=== PATIENT | female | born 1970 | race Caucasian/White ===

== ENCOUNTER 2018-04-20 13:45 | Observation (INO) | payer BC ==
[~2018-04-20] VITALS: Ht 162.6 cm; Wt 103.0 kg
== END 2018-04-20 16:00 | disposition home or self-care (01) ==
LOC: SPU 13:45
PROVIDERS: ADMIT Obstetrics & Gynecology; ATTEND Obstetrics & Gynecology
DX: O41.93X0 Disorder of amniotic fluid and membranes, unspecified, third trimester, not applicable or unspecified (principal); Z3A.31 31 weeks gestation of pregnancy
CPT/HCPCS: 59025; 76819; 81002; G0378

== ENCOUNTER 2018-05-09 20:31 | Observation (INO) | payer BC ==
[~2018-05-09] VITALS: Ht 162.6 cm; Wt 102.1 kg
[2018-05-09 21:34] VITALS: BP_SYST 132
[2018-05-09 21:36] LABS: BASOPHILS % (AUTO) 0.3 % (0.0-2.0); EOSINOPHILS # (AUTO) 0.1 K/uL (0.0-0.4); HEMATOCRIT 36.3 % (36-48); HEMOGLOBIN 12.3 g/dL (12.0-16.0); LYMPHOCYTES # (AUTO) 1.5 K/uL (1.0-5.5); LYMPHOCYTES % (AUTO) 15.2 % (20.5-51.5); MEAN CORPUSCULAR HEMOGLOBIN 33 pg (27-31); MEAN CORPUSCULAR HGB CONC 34 % (32-36); MEAN CORPUSCULAR VOLUME 98 fL (79.0-98.0); MONOCYTES # (AUTO) 0.4 K/uL (0.0-1.0); MONOCYTES % (AUTO) 4.5 % (1.7-9.3); NEUTROPHILS # (AUTO) 7.6 K/uL (1.8-7.7); PLATELET COUNT (AUTO) 233 K/uL (130-430); RED BLOOD CELL COUNT(AUTO) 3.72 MIL/uL (4.2-6.2); RED CELL DISTRIBUTION WIDTH 13.3 % (9.0-15.0); WHITE BLOOD COUNT (AUTO) 9.6 K/uL (4.8-10.8)
[2018-05-09 21:54] LABS: ALBUMIN 2.4 g/dL (3.4-4.8); CALCIUM 8.7 mg/dL (8.4-11.0); CREATININE 0.64 mg/dL (0.55-1.30); POTASSIUM 4.4 mmol/L (3.5-5.1); TOTAL BILIRUBIN 0.2 mg/dL (0.0-1.0); URIC ACID 3.4 mg/dL (2.4-7.0)
== END 2018-05-09 22:39 | disposition home or self-care (01) ==
LOC: SPU 20:31
PROVIDERS: ADMIT Specialist; ATTEND Specialist
DX: O99.89 Other specified diseases and conditions complicating pregnancy, childbirth and the puerperium (principal); M25.475 Effusion, left foot; Z3A.00 Weeks of gestation of pregnancy not specified
CPT/HCPCS: 36415; 80053; 81002; 84550; 85025; G0378

== ENCOUNTER 2018-05-13 13:13 | Observation (INO) | payer BC ==
[~2018-05-13] VITALS: Ht 162.6 cm; Wt 103.9 kg
== END 2018-05-13 14:30 | disposition home or self-care (01) ==
LOC: SPU 13:13
PROVIDERS: ADMIT Specialist; ATTEND Specialist
DX: O09.523 Supervision of elderly multigravida, third trimester (principal); O99.283 Endocrine, nutritional and metabolic diseases complicating pregnancy, third trimester; E03.9 Hypothyroidism, unspecified; Z3A.34 34 weeks gestation of pregnancy
CPT/HCPCS: 59025; 81002; G0378

== ENCOUNTER 2018-06-07 12:00 | Inpatient (IN) | payer BC ==
[2018-06-06 12:12] LABS: BILIRUBIN,URINE NEGATIVE (NEGATIVE); BLOOD, URINE NEGATIVE (NEGATIVE); CLARITY/URINE CLEAR (CLEAR); COLOR,URINE YELLOW (YELLOW); GLUCOSE,URINE NEGATIVE (NEGATIVE); KETONES,URINE NEGATIVE (NEGATIVE); LEUKOCYTE ESTERASE ,URINE NEGATIVE (NEGATIVE); NITRITE, URINE NEGATIVE (NEGATIVE); PH,URINE 6.5 (5.0-8.0); PROTEIN URINE 1+ (NEGATIVE); UROBILINOGEN,URINE 0.2 (0.2-1.0)
[2018-06-06 12:31] LABS: BACTERIA,URINE RARE /HPF (None Seen); RBC,URINE 0-3 /HPF (0-3); WBC,URINE 0-3 /HPF (0-3)
[2018-06-06 12:34] LABS: BASOPHILS % (AUTO) 0.5 % (0.0-2.0); EOSINOPHILS # (AUTO) 0.1 K/uL (0.0-0.4); EOSINOPHILS % (AUTO) 1.1 % (0.0-4.0); HEMATOCRIT 38.1 % (36-48); HEMOGLOBIN 12.5 g/dL (12.0-16.0); LYMPHOCYTES # (AUTO) 1.1 K/uL (1.0-5.5); LYMPHOCYTES % (AUTO) 16.8 % (20.5-51.5); MEAN CORPUSCULAR HEMOGLOBIN 32 pg (27-31); MEAN CORPUSCULAR HGB CONC 33 % (32-36); MEAN CORPUSCULAR VOLUME 99 fL (79.0-98.0); MONOCYTES # (AUTO) 0.3 K/uL (0.0-1.0); NEUTROPHILS # (AUTO) 5.2 K/uL (1.8-7.7); NEUTROPHILS % (AUTO) 76.6 % (40.0-70.0); PLATELET COUNT (AUTO) 179 K/uL (130-430); RED BLOOD CELL COUNT(AUTO) 3.86 MIL/uL (4.2-6.2); WHITE BLOOD COUNT (AUTO) 6.7 K/uL (4.8-10.8)
[~2018-06-07] VITALS: Ht 162.6 cm; Wt 111.6 kg
[2018-06-07] MEDS ORDERED: LIDOCAINE PF 1%, 20 MG/2 ML AMP ONE (14:34)
[2018-06-07] MEDS ORDERED: LR 1,000 ML IV ONE (14:46)
[2018-06-07] MEDS ORDERED: CEFAZOLIN 2 GM IVPB PREMIX 50 ML IV ONE (15:00)
[2018-06-07] MEDS ORDERED: OXYTOCIN/0.9 % SODIUM CHLORIDE 1,000 ML IV ONE (15:57)
[2018-06-07] MEDS ORDERED: LR 1,000 ML IV SCH ×2 (15:57→15:58)
[2018-06-07] MEDS ORDERED: NALOXONE HCL 1 MG in NACL 0.9% 1,000 ML IV PRN ×4 (15:58)
[2018-06-07] MEDS ORDERED: MEPERIDINE HCL/PF 25 MG/ML DISP.SYRIN IVP PRN ×2 (16:00)
[2018-06-07] MEDS ORDERED: HYDROmorphone 1 MG INJ. 1 MG/ML AMPUL IVP PRN (16:00)
[2018-06-07] MEDS ORDERED: NALOXONE HCL 0.4 MG/ML AMP (NARCAN) IVP PRN ×3 (16:00)
[2018-06-07] MEDS ORDERED: DIPHENHYDRAMINE HCL 50 MG CAPSULE PO PRN (16:00)
[2018-06-07] MEDS ORDERED: DIPHENHYDRAMINE INJ 50 MG/ML VIAL IVP PRN (16:00)
[2018-06-07] MEDS ORDERED: KETOROLAC TROMETHAMINE 60 MG/2 ML VIAL IM PRN (16:00)
[2018-06-07] MEDS ORDERED: HYDROmorphone 2 MG/ML VIAL IVP PRN ×2 (16:00)
[2018-06-07] MEDS: ONDANSETRON HCL 4 MG/2 ML VIAL IVP PRN (16:45)
[2018-06-07] MEDS ORDERED: ONDANSETRON HCL 4 MG/2 ML VIAL ONE (16:50)
[2018-06-07 17:52] VITALS: BP_SYST 115
[2018-06-08] MEDS: ONDANSETRON HCL 4 MG/2 ML VIAL IVP PRN ×2 (02:24→08:14)
[2018-06-08] MEDS: CEFAZOLIN 1 GM IVPB PREMIX 50 ML IV SCH ×2 (07:58)
[2018-06-08] MEDS: KETOROLAC TROMETHAMINE 30 MG VIAL IVP SCH ×2 (08:15→12:26)
[2018-06-08] MEDS ORDERED: ePHEDrine sulfate 50 MG/ML VIAL IVP ONE (14:15)
[2018-06-08] MEDS ORDERED: DIPHENHYDRAMINE INJ 50 MG/ML VIAL IVP ONE (14:15)
[2018-06-08] MEDS ORDERED: MORPHINE SULFATE 10MG/10ML PF AMP EP ONE (14:15)
[2018-06-08] MEDS ORDERED: BUPIVACAINE /DEX PF 0.75% SPINAL 2 ML AMP INJ ONE (14:15)
[2018-06-08] MEDS ORDERED: ONDANSETRON HCL 4 MG/2 ML VIAL IVP ONE (14:15)
[2018-06-08] MEDS ORDERED: LR 1,000 ML IV.SOLN IV ONE (14:15)
[2018-06-08] MEDS ORDERED: WATER FOR IRRIGATION,STERILE 1,000 ML IRRIG.SOLN IR ONE (14:15)
[2018-06-08] MEDS ORDERED: OXYTOCIN 10 UNIT/ML VIAL IV ONE (14:15)
[2018-06-08] MEDS: SIMETHICONE 80 MG TAB.CHEW PO SCH ×2 (18:00→22:50)
[2018-06-08] MEDS: IBUPROFEN 600 MG TABLET PO SCH ×2 (18:01→23:58)
[2018-06-08] MEDS ORDERED: DOCUSATE SODIUM 100 MG CAPSULE PO ONE (18:25)
[2018-06-08] MEDS: DOCUSATE SODIUM 100 MG CAPSULE PO PRN (18:33)
[2018-06-08] MEDS: OXYCODONE/ACETAMINOPHEN 5-325 TABLET PO PRN ×2 (18:33→22:51)
[2018-06-09] MEDS: OXYCODONE/ACETAMINOPHEN 5-325 TABLET PO PRN ×5 (02:34→23:42)
[2018-06-09] MEDS: IBUPROFEN 600 MG TABLET PO SCH ×4 (05:44→23:41)
[2018-06-09] MEDS: SIMETHICONE 80 MG TAB.CHEW PO SCH ×3 (12:35→23:40)
[2018-06-09] MEDS: DOCUSATE SODIUM 100 MG CAPSULE PO PRN (12:35)
[2018-06-10] MEDS: IBUPROFEN 600 MG TABLET PO SCH ×2 (06:14→12:04)
[2018-06-10] MEDS: OXYCODONE/ACETAMINOPHEN 5-325 TABLET PO PRN ×2 (06:15→12:25)
[2018-06-10] MEDS: DOCUSATE SODIUM 100 MG CAPSULE PO PRN (12:04)
[2018-06-10] MEDS: SIMETHICONE 80 MG TAB.CHEW PO SCH (12:05)
== END 2018-06-10 12:30 | disposition home or self-care (01) | DRG 788 ==
LOC: SPU 14:30
PROVIDERS: ADMIT Specialist; ATTEND Specialist
PROC: 10D00Z1 Extraction of Products of Conception, Low, Open Approach (ICD-10-PCS; principal; 2018-06-10)
DX: O76 Abnormality in fetal heart rate and rhythm complicating labor and delivery (principal); O34.13 Maternal care for benign tumor of corpus uteri, third trimester; D25.9 Leiomyoma of uterus, unspecified; O69.81X0 Labor and delivery complicated by cord around neck, without compression, not applicable or unspecified; Z37.0 Single live birth; Z3A.37 37 weeks gestation of pregnancy
CPT/HCPCS: 36415; 81000-TC; 85025; 86592; 86886; 86900; 86901; 94760; J0690; J1200; J1885; J2001; J2274; J2310; J2405; J2590; J3490; J7030; J7120

== ENCOUNTER 2019-11-16 08:40 | Observation (INO) | payer BC ==
[~2019-11-16] VITALS: Ht 162.6 cm; Wt 104.3 kg
== END 2019-11-16 10:55 | disposition home or self-care (01) ==
LOC: SPU 08:40
PROVIDERS: ADMIT Specialist; ATTEND Specialist
DX: Z03.818 Encounter for observation for suspected exposure to other biological agents ruled out (principal); O36.8130 Decreased fetal movements, third trimester, not applicable or unspecified; Z3A.34 34 weeks gestation of pregnancy
CPT/HCPCS: 59025; 76815; G0378; U0003

== ENCOUNTER 2019-11-27 11:55 | Inpatient (IN) | payer BC ==
[~2019-11-27] VITALS: Ht 162.6 cm; Wt 104.3 kg
[2019-11-27] MEDS ORDERED: LR 1,000 ML IV ONE (12:21)
[2019-11-27] MEDS ORDERED: CEFAZOLIN 2 GM IVPB PREMIX 50 ML IV ONE (12:30)
[2019-11-27 12:57] LABS: BILIRUBIN,URINE NEGATIVE (NEGATIVE); BLOOD, URINE NEGATIVE (NEGATIVE); CLARITY/URINE TURBID (CLEAR); COLOR,URINE YELLOW (YELLOW); GLUCOSE,URINE NEGATIVE (NEGATIVE); KETONES,URINE TRACE (NEGATIVE); LEUKOCYTE ESTERASE ,URINE NEGATIVE (NEGATIVE); NITRITE, URINE NEGATIVE (NEGATIVE); PROTEIN URINE TRACE (NEGATIVE); UROBILINOGEN,URINE 0.2 (0.2-1.0)
[2019-11-27 13:05] LABS: BASOPHILS % (AUTO) 0.4 % (0.0-2.0); EOSINOPHILS % (AUTO) 0.6 % (0.0-4.0); HEMATOCRIT 38.3 % (36-48); HEMOGLOBIN 12.6 g/dL (12.0-16.0); LYMPHOCYTES # (AUTO) 1.6 K/uL (1.0-5.5); LYMPHOCYTES % (AUTO) 22.3 % (20.5-51.5); MEAN CORPUSCULAR HEMOGLOBIN 32 pg (27-31); MEAN CORPUSCULAR HGB CONC 33 % (32-36); MEAN CORPUSCULAR VOLUME 98 fL (79.0-98.0); MONOCYTES # (AUTO) 0.4 K/uL (0.0-1.0); NEUTROPHILS % (AUTO) 71.7 % (40.0-70.0); PLATELET COUNT (AUTO) 204 K/uL (130-430); RED BLOOD CELL COUNT(AUTO) 3.92 MIL/uL (4.2-6.2); RED CELL DISTRIBUTION WIDTH 15.4 % (9.0-15.0)
[2019-11-27 14:20] VITALS: BP_SYST 111
[2019-11-27] MEDS ORDERED: fentaNYL CITRATE/PF 100 MCG/2 ML AMP IVP PRN ×2 (16:00)
[2019-11-27] MEDS ORDERED: DIPHENHYDRAMINE INJ 50 MG/ML VIAL IVP PRN (16:00)
[2019-11-27] MEDS ORDERED: KETOROLAC TROMETHAMINE 60 MG/2 ML VIAL IM PRN (16:00)
[2019-11-27] MEDS ORDERED: NALBUPHINE HCL 10 MG/ML AMP IVP PRN (16:00)
[2019-11-27] MEDS ORDERED: NALOXONE HCL 0.4 MG/ML AMP (NARCAN) IVP PRN ×3 (16:00→22:45)
[2019-11-27] MEDS ORDERED: MORPHINE SULFATE 10MG/10ML PF AMP SP SCH (16:00)
[2019-11-27] MEDS ORDERED: AMPICILLIN SODIUM 2 GM in NS 100 ML IV ONE (20:00)
[2019-11-27] MEDS ORDERED: AMPICILLIN SODIUM 2 GM VIAL ONE (20:13)
[2019-11-27] MEDS ORDERED: MORPHINE SULFATE 10MG/10ML PF AMP EP ONE (21:31)
[2019-11-27] MEDS ORDERED: PHENYLEPHRINE HCL 10 MG/ML VIAL (NEOSYNEPHRINE) IV ONE (21:31)
[2019-11-27] MEDS ORDERED: ONDANSETRON HCL 4 MG/2 ML VIAL IVP ONE (21:31)
[2019-11-27] MEDS ORDERED: BUPIVACAINE /DEX PF 0.75% SPINAL 2 ML AMP INJ ONE (21:31)
[2019-11-27] MEDS ORDERED: NS IRRIG SOLN 1000 ML IR ONE (21:31)
[2019-11-27] MEDS ORDERED: LR 1,000 ML IV SCH (22:40)
[2019-11-27] MEDS ORDERED: OXYTOCIN/0.9 % SODIUM CHLORIDE 1,000 ML IV SCH (22:40)
[2019-11-27 22:42] VITALS: BP_SYST 124
[2019-11-27] MEDS ORDERED: DIPH-TET-PERTUS Vaccine 0.5 ML VIAL (ADACEL) I.M. PRN (22:45)
[2019-11-27] MEDS ORDERED: SENNOSIDES/DOCUSATE SODIUM 1 TAB TABLET(SENOKOT-S) PO PRN (22:45)
[2019-11-27] MEDS ORDERED: DOCUSATE SODIUM 100 MG CAPSULE PO PRN (22:45)
[2019-11-27] MEDS ORDERED: HYDROcodone/ACETAMIN 5-325 MG TAB (NORCO/ VICODIN) PO PRN (22:45)
[2019-11-27] MEDS ORDERED: RHO(D) IMMUNE GLOBULIN/MALTOSE 1500 UNITS/1.3 ML (WINHRO) IM PRN (22:45)
[2019-11-27] MEDS ORDERED: BISACODYL 10 MG/SUPPOSITORY RC PRN (22:45)
[2019-11-27] MEDS ORDERED: TEMAZEPAM 15 MG CAPSULE PO PRN (22:45)
[2019-11-27] MEDS ORDERED: MEASLES,MUMPS&RUBELLA VACC/PF 12500 UNIT/0.5 ML VIAL SUBQ PRN (22:45)
[2019-11-27] MEDS ORDERED: ANUSOL 1 EA SUPP.RECT (PREPARATION H) RC PRN (22:45)
[2019-11-27] MEDS ORDERED: LANOLIN 7 GM OINT. TP PRN (22:45)
[2019-11-27] MEDS ORDERED: OXYTOCIN/0.9 % SODIUM CHLORIDE 1,000 ML IV ONE (23:16)
[2019-11-27] MEDS ORDERED: DIPHENHYDRAMINE INJ 50 MG/ML VIAL ONE (23:26)
[2019-11-27] MEDS: ONDANSETRON HCL 4 MG/2 ML VIAL IVP PRN (23:40)
[2019-11-28] MEDS ORDERED: ONDANSETRON HCL 4 MG/2 ML VIAL ONE
[2019-11-28] MEDS ORDERED: CEFAZOLIN 1 GM IVPB PREMIX 50 ML IV SCH
[2019-11-28] MEDS: CEFAZOLIN 1 GM IVPB PREMIX 50 ML IV SCH ×3 (02:47→15:07)
[2019-11-28 07:15] LABS: BASOPHILS % (AUTO) 0.2 % (0.0-2.0); EOSINOPHILS % (AUTO) 0.1 % (0.0-4.0); HEMATOCRIT 33.3 % (36-48); HEMOGLOBIN 10.9 g/dL (12.0-16.0); LYMPHOCYTES # (AUTO) 1.9 K/uL (1.0-5.5); LYMPHOCYTES % (AUTO) 15.5 % (20.5-51.5); MEAN CORPUSCULAR HEMOGLOBIN 33 pg (27-31); MEAN CORPUSCULAR HGB CONC 33 % (32-36); MEAN CORPUSCULAR VOLUME 100 fL (79.0-98.0); MONOCYTES # (AUTO) 0.6 K/uL (0.0-1.0); MONOCYTES % (AUTO) 5.2 % (1.7-9.3); NEUTROPHILS # (AUTO) 9.6 K/uL (1.8-7.7); PLATELET COUNT (AUTO) 171 K/uL (130-430); RED BLOOD CELL COUNT(AUTO) 3.34 MIL/uL (4.2-6.2); RED CELL DISTRIBUTION WIDTH 15.8 % (9.0-15.0); WHITE BLOOD COUNT (AUTO) 12.1 K/uL (4.8-10.8)
[2019-11-28] MEDS: ONDANSETRON HCL 4 MG/2 ML VIAL IVP PRN (08:30)
[2019-11-28] MEDS: KETOROLAC TROMETHAMINE 30 MG VIAL IVP SCH ×3 (09:03→22:14)
[2019-11-28] MEDS: OXYCODONE/ACETAMINOPHEN 5-325 TABLET PO PRN (20:42)
[2019-11-28] MEDS: SIMETHICONE 80 MG TAB.CHEW PO PRN (20:42)
[2019-11-29] MEDS: SIMETHICONE 80 MG TAB.CHEW PO PRN (00:49)
[2019-11-29] MEDS: OXYCODONE/ACETAMINOPHEN 5-325 TABLET PO PRN ×2 (00:49→04:04)
[2019-11-29] MEDS ORDERED: IBUPROFEN 600 MG TABLET PO SCH ×2 (06:00)
[2019-11-29] MEDS: KETOROLAC TROMETHAMINE 30 MG VIAL IVP SCH (06:22)
[2019-11-29] MEDS: OXYCODONE/ACETAMINOPHEN *10*mg/325 mg TABLET PO PRN ×3 (07:55→15:59)
[2019-11-30 19:27] LABS: FTA-Ab (T PALLIDUM) Non Reactive (Non Reactive)
== END 2019-11-29 16:45 | disposition home or self-care (01) | DRG 788 ==
LOC: SPU 11:55
PROVIDERS: ADMIT Specialist; ATTEND Specialist
PROC: 10D00Z1 Extraction of Products of Conception, Low, Open Approach (ICD-10-PCS; principal; 2019-11-27 17:00)
DX: O24.429 Gestational diabetes mellitus in childbirth, unspecified control (principal); R03.0 Elevated blood-pressure reading, without diagnosis of hypertension; O75.89 Other specified complications of labor and delivery; Z3A.36 36 weeks gestation of pregnancy; Z37.0 Single live birth
CPT/HCPCS: 36415; 81003; 82962; 85025; 86592; 86780; 86886; 86900; 86901; 94760; J0290; J0690; J1200; J1885; J2274; J2370; J2405; J2590; J3490; J7120

== ENCOUNTER 2023-12-16 06:07 | Day surgery (SDC) | payer BC ==
[2023-12-13 10:44] LABS: EOSINOPHILS # (AUTO) 0.1 K/uL (0.0-0.4); EOSINOPHILS % (AUTO) 1.6 % (0.0-4.0); HEMATOCRIT 38.1 % (36-48); HEMOGLOBIN 12.7 g/dL (12.0-16.0); LYMPHOCYTES # (AUTO) 1.1 K/uL (1.0-5.5); LYMPHOCYTES % (AUTO) 24.3 % (20.5-51.5); MEAN CORPUSCULAR HEMOGLOBIN 31 pg (27-31); MEAN CORPUSCULAR HGB CONC 33 % (32-36); MEAN CORPUSCULAR VOLUME 94 fL (79.0-98.0); MONOCYTES # (AUTO) 0.3 K/uL (0.0-1.0); MONOCYTES % (AUTO) 7.2 % (1.7-9.3); NEUTROPHILS % (AUTO) 65.9 % (40.0-70.0); PLATELET COUNT (AUTO) 310 K/uL (130-430); RED BLOOD CELL COUNT(AUTO) 4.05 MIL/uL (4.2-6.2); RED CELL DISTRIBUTION WIDTH 15.2 % (9.0-15.0); WHITE BLOOD COUNT (AUTO) 4.6 K/uL (4.8-10.8)
[2023-12-13 10:48] LABS: BILIRUBIN,URINE NEGATIVE (NEGATIVE); BLOOD, URINE 3+ (NEGATIVE); CLARITY/URINE CLOUDY (CLEAR); COLOR,URINE RED (YELLOW); GLUCOSE,URINE NEGATIVE (NEGATIVE); KETONES,URINE 1+ (NEGATIVE); LEUKOCYTE ESTERASE ,URINE 1+ (NEGATIVE); NITRITE, URINE POSITIVE (NEGATIVE); PH,URINE 6.5 (5.0-8.0); PROTEIN URINE 3+ (NEGATIVE)
[2023-12-13 11:06] LABS: RBC,URINE >100 /HPF (0-3)
[2023-12-13 11:07] LABS: BACTERIA,URINE RARE /HPF (None Seen)
[~2023-12-16] VITALS: Ht 162.6 cm; Wt 88.5 kg
[2023-12-16] MEDS ORDERED: CEFAZOLIN SOD 2 GM in D5W 50 ML IV ONE (07:00)
[2023-12-16] MEDS ORDERED: ONDANSETRON HCL 4 MG/2 ML VIAL IVP PRN ×2 (07:30→08:30)
[2023-12-16] MEDS ORDERED: MORPHINE 4 MG INJ. 4 MG/ML VIAL IVP PRN (07:30)
[2023-12-16] MEDS ORDERED: LR 1,000 ML IV SCH (07:30)
[2023-12-16] MEDS ORDERED: DEXAMETHASONE SOD PHOSPHATE 4 MG/ML VIAL ONE (08:28)
[2023-12-16] MEDS ORDERED: HYDROmorphone 1 MG/ML INJ. CARTRIDGE ONE (08:38)
[2023-12-16] MEDS: HYDROmorphone 1 MG/ML INJ. CARTRIDGE IVP PRN (08:40)
[2023-12-16 09:15] VITALS: O2SAT 100
[2023-12-16 17:09] VITALS: BP_SYST 140; PULSE 62; RESP 17
== END 2023-12-16 10:21 | disposition home or self-care (01) ==
LOC: SDS 06:07 → SMU 06:08 → SDS 10:21
PROVIDERS: ATTEND Specialist
DX: N95.0 Postmenopausal bleeding (principal); N85.8 Other specified noninflammatory disorders of uterus; R93.89 Abnormal findings on diagnostic imaging of other specified body structures; E03.9 Hypothyroidism, unspecified; F32.A Depression, unspecified; F41.9 Anxiety disorder, unspecified; Z91.013 Allergy to seafood; M47.814 Spondylosis without myelopathy or radiculopathy, thoracic region; Z98.84 Bariatric surgery status; Z98.891 History of uterine scar from previous surgery; Z98.890 Other specified postprocedural states; Z79.890 Hormone replacement therapy; Z79.899 Other long term (current) drug therapy
CPT/HCPCS: 81000; 81001; 84702; 85025; 87081; 36415; 93005; 71046; 58563; 88305; J3490; J0690; J1100; J2765; J2250; J2405; J2704; J0330; J3010; J1170; J7060; J7120; J7030; 81015